=== PATIENT | male | born 1940 | race Caucasian/White ===

== ENCOUNTER 2017-08-26 11:45 | Inpatient (IN) | payer OTHER ==
[~2017-08-26] VITALS: Ht 177.8 cm; Wt 93.8 kg
[~2017-08-26 11:45] MED LIST: HYDROCHLOROTHIA25 M2 PO; HYDROCODON-ACE1 EAC7 PO; LEVEMIR SUBQ; LIPITOR40 MG PO; LISINOPRIL10 MG PO; METFORMIN HCL500 MG PO; NOVOLOG100 UNIT/1 SQ
[2017-08-26 11:50] VITALS: BP 139/66
[2017-08-26 12:47] LABS: ABSOLUTE BASOPHILS 0.1 thou/uL (0.0-0.2); ABSOLUTE EOSINOPHILS 0.2 thou/uL (0.0-0.7); ABSOLUTE LYMPHOCYTES 2.9 thou/uL (0.8-5.3); ABSOLUTE MONOCYTES 0.7 thou/uL (0.0-1.2); ABSOLUTE NEUTROPHILS 6.3 thou/uL (1.6-8.1); BASOPHILS 0.9 %; EOSINOPHILS 1.7 %; HEMATOCRIT 40.8 % (42.0-52.0); HEMOGLOBIN 13.4 gm/dL (14.0-18.0); LYMPHOCYTES 28.3 %; MCH 29.8 pg (26.0-34.0); MCHC 32.9 g/dL (28.0-37.0); MCV 90.8 fL (80.0-100.0); MPV 7.9 fl. (7.2-11.1); NUCLEATED RBCS 0 /100WBC; PLATELET COUNT* 270 thou/uL (150-400); POLYS 62.1 %; RDW-CV 14.7 % (10.5-14.5); WBC 10.2 thou/uL (4.0-11.0)
[2017-08-26] MEDS ORDERED: ASPIR 8181 MG PO (12:48)
[2017-08-26] MEDS ORDERED: ZYRTEC10 M4 PO (12:50)
[2017-08-26] MEDS ORDERED: TYLENOL325 MG PO (12:51)
[2017-08-26] MEDS ORDERED: ATROVENT HFA14 GM INH (12:51)
[2017-08-26 12:52] LABS: ANION GAP 9 mmol/L (7-16); BUN 24 mg/dL (7-18); CHLORIDE 103 mmol/L (98-107); CO2 26 mmol/L (21-32); CREATININE 1.3 mg/dL (0.6-1.3); GLUCOSE 135 mg/dL (70-99); SODIUM 138 mmol/L (136-145)
[2017-08-26 12:59] LABS: ALBUMIN 3.3 g/dL (3.4-5.0); ALKALINE PHOSPHATASE 93 U/L (46-116); SGOT 25 U/L (15-37); SGPT 28 U/L (30-65); TOTAL BILIRUBIN 0.6 mg/dL (<0.1-1.0); TOTAL PROTEIN 7.1 g/dL (6.4-8.2); TROPONIN-I LEVEL <0.06 ng/mL (<0.06)
--- NOTE | 2017-08-26 14:08 | NUR ---
SMALL LACERATION TO BACK OF HEAD. CLEANED WITH ANTIBACTERIAL SOAP AND WATER PHYSICIAN VIEWED LAC, DECIDED NO FURTHER INTERVENTION NEEDED FOR CLOSURE
[2017-08-26 14:30] VITALS: BP 160/70
--- NOTE | 2017-08-26 14:30 | NUR ---
RECEIVED REPORT. PT TRANSFERRED TO ROOM 210 VIA CART. VSS. CARDIAC MONTIORING IN PLACE. ADMISSION HISTORY AND ASSESSMENT COMPLETED CHARTED. PT ALERT AND ORIETNED. 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 PT ON RA. BILATERAL COMPRESSION STOCKINGS IN PLACE BILATERALLY. PT DENIES ANY COMPLAINTS OF PAIN OR DISCOMFORT AT THIS TIME. PT DENIES ANY DIZZINESS. FALL RISK AND MEDICARE FORMS SIGNED. PT ORIETNED TO ROOM AND CALL LIGHT. PT AND SON INFORMED OF PLAN OF CARE. CALL LIGHT IS WITHIN REACH. WILL CONTINUE TO MONTIOR FOR DURAITO OF SHIFT.
[2017-08-26 14:51] VITALS: BP 153/71
[2017-08-26] MEDS ORDERED: LEVEMIR SUBQ (15:30)
[2017-08-26 17:49] VITALS: BP 141/67
--- NOTE | 2017-08-26 18:42 | NUR ---
PT'S SON TO NURSE'S STATION SAYING PT FELT SOA. UPON ASSESSMENT VSS. O2 SAT 100% ON RA. PT DOES REPORT FEELING SOA. 2L PER NC APPLIED FOR COMFORT. PT DENIES ANY PAIN. PT SR ON THE MONTIOR. ENCOURAGED PT TO NOTIFY NURSE IF HE CONTINUES TO FEEL WORSE.
[2017-08-26 20:00] VITALS: BP 141/60
[2017-08-26 20:45] LABS: URINE BILIRUBIN NEGATIVE (Negative); URINE BLOOD NEGATIVE (Negative); URINE CLARITY CLEAR; URINE COLOR YELLOW; URINE GLUCOSE-RANDOM 3+ (Negative); URINE KETONES TRACE (Negative); URINE LEUKOCYTES-REFLEX NEGATIVE (Negative); URINE NITRITE-REFLEX NEGATIVE (Negative); URINE PROTEIN NEGATIVE (Negative); URINE UROBILINOGEN 0.2 E.U./dl (0.2-1.0)
[2017-08-27] VITALS: BP 172/78
[2017-08-27 00:10] VITALS: BP 154/67
[2017-08-27 04:00] VITALS: BP 131/62
--- NOTE | 2017-08-27 04:51 | NUR ---
PATIENT RESTED IN BED, NO ACUTE CHANGES. PATEINT DID NOT SHOW SIGNS OF DISTRESS. DOCTOR DOUGLAS NOTIFIED OF PATIENT MAG., LEVEL AND PATIENT PAIN, SEE ORDERS. FALL PRECAUTIONS IN PLACE, BED ALARM ON, CALL LIGHT WITHIN REACH, HOURLY ROUNDING OBSERVED.
--- NOTE | 2017-08-27 05:01 | NUR ---
PATIENT GAVE SELF HOME MEDICATION FOR BLOOD SUGAR.
--- NOTE | 2017-08-27 05:02 | NUR ---
DOCTOR COLE NOTIFIED OF PATIENT HOME INSULIN ROUTINE AND USEAGE.
--- NOTE | 2017-08-27 05:06 | NUR ---
DOCTOR YULI GAVE ORDER TO DRAW MAG, SEE ORDERS.
[2017-08-27 05:35] LABS: CHOLESTEROL 148 mg/dL (<200); HDL CHOLESTEROL 53 mg/dL (>40); LDL CHOLESTEROL 83 mg/dL (<100); TC:HDL 2.8 Ratio (Not establshd); TRIGLYCERIDE 62 mg/dL (<150); VLDL 12 mg/dL (<40)
[2017-08-27 05:38] LABS: SERUM ASSESSMENT CLEAR
--- NOTE | 2017-08-27 09:45 | EKG ---
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: DC : 1940 Requested By: Hattie Whatley Order Number: [id number] MD: Maury Belcher Measurements Intervals Dania Rate: 59 P: 66 MS: 166 QRS: 13 QRSD: 90 T: 9 QT: 406 QTc: 403 Interpretive Statements Sinus rhythm Multiple ventricular premature complexes Abnormal R-wave progression, early transition Compared to ECG 12/20/2015 18:13:22 No significant changes Electronically Signed On 08-27-2017 9:45:01 CDT by Maury Belcher [email or web address] <ELECTRONICALLY SIGNED> By: Maury Belcher MD, [facility] 08/27/17 0945 1152 1152 Maury Belcher MD, [facility] /EPI
[2017-08-27 11:28] VITALS: BP 156/60
--- NOTE | 2017-08-27 13:47 | NUR ---
Pt is A&O. Resides at home with his son and DIL. Normally active and independent. No DME. No hx of HH or SNF. Supportive family that is involved in POC, son and DIL, in room at bedside. Goal is to return home at dc. Following.
--- NOTE | 2017-08-27 16:28 | 2DMMODE ---
[place] [address] 2 D/M-MODE ECHOCARDIOGRAM Name: SANGALEKSEY SHEYLA Room: [address] ADM IN [facility]#: [id number] Admission: 08/26/17 Attend Phys: Mando Boggs Discharge: Date of : 44 Date of Service: 08/27/17 1628 Report #: [id number] THIS REPORT FOR: //name// APPROVED REPORT Study performed: 08/27/2017 11:35:19 EXAM: Comprehensive 2D, Doppler, and color-flow Echocardiogram Patient Location: In-Patient Room #: 210 Status: routine BSA: 2.19 HR: 60 bpm BP: 131/62 mmHg Other Information Study Quality: Fair Indications Arrhythmia 2D Dimensions IVSd: 11.06 (7-11mm) LVOT Diam: 20.79 (18-24mm) LVDd: 51.29 mm PWd: 11.28 (7-11mm) Ascending Ao: 29.21 (22-36mm) LVDs: 36.61 (25-40mm) Aortic Root: 31.15 mm Volumes Left Atrial Volume (Systole) LA ESV Index: 33.10 mL/m2 Aortic Valve AoV Peak Timi.: 1.25 m/s AO Peak Gr.: 6.22 mmHg LVOT Max P.80 mmHg AO Mean Gr.: 3.41 mmHg LVOT Mean P.25 mmHg LVOT Max V: 0.84 m/s AO V2 VTI: 30.04 cm LVOT Mean V: 0.50 m/s BRIDGER (VTI): 2.38 cm2 LVOT V1 VTI: 21.05 cm Mitral Valve E/A Ratio: 1.38 MV Decel. Time: 153.32 ms MV E Max Timi.: 0.92 m/s MV PHT: 44.46 [place] [address] 2 D/M-MODE ECHOCARDIOGRAM Name: ALEKSEY DOMÍNGUEZ Room: [address] IN [facility]#: [id number] Admission: 08/26/17 Attend Phys: Mando Boggs Discharge: Date of : 44 Date of Service: 08/27/17 1628 Report #: [id number] MVA (PHT): 4.95 cm2 TDI E/Lateral E': 10.22 E/Medial E': 13.14 Medial E' Timi.: 0.07 m/s Lateral E' Timi.: 0.09 m/s Pulmonary Valve PV Peak Timi.: 0.99 m/s PV Peak Gr.: 3.94 mmHg Tricuspid Valve TR Peak Gr.: 19.52 mmHg RVSP: 24.52 mmHg Left Ventricle The left ventricle is normal size. There is global hypokinesis of the left ventricle. Mild concentric left ventricular hypertrophy. Left ventricular systolic function is mildly decreased. LVEF is 35-40%. The left ventricular diastolic function is normal. Right Ventricle The right ventricle is normal size. The right ventricular systolic function is normal. Atria Left atrium is mildly dilated. The right atrium size is normal. Aortic Valve Aortic valve is mildly calcified. No aortic regurgitation is present. There is no aortic valvular stenosis. Mitral Valve The mitral valve is normal in structure. Mild mitral annular calcification. Mild mitral regurgitation. No evidence of mitral valve stenosis. Tricuspid Valve The tricuspid valve is normal in structure. Mild tricuspid regurgitation. The RVSP is 35__ mmHg. Pulmonic Valve The pulmonary valve is normal in structure. There is no pulmonic valvular regurgitation. Great Vessels The aortic root is normal in size. IVC [place] [address] 2 D/M-MODE ECHOCARDIOGRAM Name: ALEKSEY DOMÍNGUEZ Room: [address] IN [facility]#: [id number] Admission: 08/26/17 Attend Phys: Mando Boggs Discharge: Date of : 44 Date of Service: 08/27/17 1628 Report #: [id number] collapses with >50% inspiration Pericardium There is no pericardial effusion. <Conclusion> LVEF is 35-40%. Mild concentric left ventricular hypertrophy. Aortic valve is mildly calcified. Mild mitral regurgitation. Left atrium is mildly dilated. <ELECTRONICALLY SIGNED> By: Maury Belcher MD, [facility] 08/27/17 1628 27 27 Maury Belcher MD, FAC /INF
[2017-08-27 17:12] VITALS: BP 120/52
--- NOTE | 2017-08-27 17:12 | CARDNUC ---
[place] [address] CARDIAC NUCLEAR IMAGING REPORT Name: ALEKSEY DOMÍNGUEZ Room: [address] IN [facility]#: [id number] Admission: 08/26/17 Attend Phys: Mando Boggs Discharge: Date of : 44 Date of Service: 08/27/17 1712 Report #: [id number] THIS REPORT FOR: //name// APPROVED REPORT Study performed: 08/27/2017 08:47:00 Exam: Pharmacological Indication: Syncope Patient Location: In-Patient Room #: 210 Stress Tech: Karolyn Rollins Stress Nurse: Anat Izaguirre RN Ht: 5 ft 10 in Wt: 224 lbs BSA: 2.19 m2 BMI: 32.13 Medical History Medical History: Diabetes, HTN, Hyperlipidemia Medications: atorvastatin, lisinopril, metoprolol, asa Allergies: No known drug allergies Cardiac Risk Factors: Age,, Diabetes (insulin), HTN, Hyperlipidemia Exercise History: Sedentary Meds Held (24 hrs): metoprolol Stress Test Details Stress Test: Pharmacologic stress testing performed using 0.4 mg of regadenoson per 5 mL given IV over 10 seconds. Reason for pharmacologic stress test: physical limitation. HR Resting HR: 57 bpm Max Heart Rate (APMHR): 145 bpm Max HR Achieved: 85 bpm Target HR (85% APMHR): 123 bpm % of APMHR: 58 Recovery HR: 76 bpm BP Resting BP: 126/63 mmHg Max BP: 107/51 mmHg ECG Resting ECG: Sinus Rhythm Stress ECG: Sinus Rhythm ST Change: [place] [address] CARDIAC NUCLEAR IMAGING REPORT Name: ALEKSEY DOMÍNGUEZ Room: [address] IN [facility]#: [id number] Admission: 08/26/17 Attend Phys: Mando Boggs Discharge: Date of : 44 Date of Service: 08/27/17 1712 Report #: [id number] Arrhythmia: VPC's Recovery ECG: Sinus Rhythm Recovery ST Change: None Recovery Arrhythmia: VPC Clinical Reason for Termination: Completed protocol Stress Symptoms: None Exercise duration: 0 min sec Exercise capacity: 1.0 METs The patient tolerated Lexiscan infusion without significant symptoms. Stress ECG Conclusion The baseline 12-lead elect cardiogram showed sinus rhythm without significant ST or T wave abnormality. EKGs obtained during and post Lexiscan infusion show sinus rhythm with no significant ST or T wave changes when compared to baseline. There were frequent unifocal premature ventricular contractions noted. NM EXAM: Myocardial Perfusion REST/STRESS Imaging Protocol: Rest Tc-99m/Stress Tc-99m 1 day Resting Data Rest SPECT myocardial perfusion imaging was performed in supine position 30 minutes following the intravenous injection of 11.6 mCi of Tc-99m Sestamibi. Time of rest injection: 1405 The images were gated to evaluate regional wall motion and calculate left ventricular ejection fraction. Administration Route: IV Administration Site: Left Arm Pharmacologic Stress Pharmacologic stress test was performed by injecting Regadenoson 0.4 mg IV push followed by the intravenous injection of 34.3 mCi of Tc-99m Sestamibi. Time of stress injection: 1550 Administration Route: IV Administration Site: Left Arm Heart Rate at time of stress injection: 85 bpm. Gated Stress SPECT was performed 40 minutes after stress injection. The images were gated to evaluate regional wall motion and calculate left ventricular ejection fraction. Prone [place] [address] CARDIAC NUCLEAR IMAGING REPORT Name: ALEKSEY DOMÍNGUEZ SHEYLA Room: [address] IN [facility].#: [id number] Admission: 08/26/17 Attend Phys: Mando Boggs Discharge: Date of : 44 Date of Service: 08/27/17 1712 Report #: [id number] Study Data At rest, the left ventricular ejection fraction was 51%.. Post stress, the left ventricular ejection was 62%.. TID = 1.03. Perfusion There is a mild in intensity small in size reversible defect involving the apex. There is a moderate size mild inferior reversible defect involving the basal portion the inferior wall. No other significant fixed or reversible defects are identified. Wall Motion Global wall motion appears normal. Nuclear Conclusion ECG Findings: negative for ischemia Clinical Findings: negative for ischemia Nuclear Findings: positive for ischemia Exercise Capacity: not assessed Left Ventricular Function: normal Risk Study: moderate Perfusion images she does ischemia involving the standard wall as well as apex. Global LV systolic function is normal. This is a moderate risk study. <Conclusion> The baseline 12-lead elect cardiogram showed sinus rhythm without significant ST or T wave abnormality. EKGs obtained during and post Lexiscan infusion show sinus rhythm with no significant ST or T wave changes when compared to baseline. There were frequent unifocal premature ventricular contractions noted. <ELECTRONICALLY SIGNED> By: Alan Castillo MD, FACC 08/27/171711 11 11 Alan Castillo MD, FACC /INF
--- NOTE | 2017-08-27 17:14 | CON ---
[address] [address] CONSULTATION Name: SANGALEKSEY SHEYLA Room: [address] IN [facility].#: [id number] Admission: 08/26/17 Attend Phys: Keenan Correia Discharge: Date of : 44 Report #: [id number] THIS REPORT FOR: //name// CC: FAM unknown [facility] Mando Boggs INDICATION: Syncope and nonsustained ventricular tachycardia. HISTORY OF PRESENT ILLNESS: The patient is a very pleasant 77-year-old gentleman with no significant prior cardiac history. 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 He passed out without warning. He did strike his head and shoulders on the floor. He has a slight laceration on the scalp and some shoulder pain. He denies chest pain. He is not having shortness of breath. On arrival to the hospital, he was noted to have multiple PVCs as well as some nonsustained ventricular tachycardia. He is asymptomatic with these arrhythmias. He denies chest pain. He is not having any exertional symptomatology. CARDIAC RISK FACTORS: Include diabetes and hyperlipidemia. PAST MEDICAL HISTORY: 1. Insulin requiring type 2 diabetes. 2. Hyperlipidemia. 3. Previous rotator cuff repair. 4. 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 FAMILY HISTORY: Noncontributory. SOCIAL HISTORY: The patient is . He works for [employer]. He does not smoke. He does not drink alcohol. ALLERGIES: None documented. CURRENT MEDICATIONS: Tylenol p.r.n., aspirin 81 mg daily, atorvastatin 80 mg at bedtime, Zyrtec 10 mg daily, hydrochlorothiazide 12.5 mg daily, NovoLog 8 units subQ t.i.d., Levemir 24 units at bedtime, Atrovent 2 puffs q.i.d., lisinopril 10 mg daily, metformin 1000 mg b.i.d. REVIEW OF SYSTEMS: A 14-point review of systems positive for diabetes, skin cancer removed from the forehead, upper dentures, decreased hearing and he wears glasses without acute visual loss. Otherwise, 14-point review of systems was unremarkable. PHYSICAL EXAMINATION: VITAL SIGNS: Stable. Blood pressure 131/62, pulse 60 and regular. GENERAL: This is a pleasant elderly gentleman [place] [address] CONSULTATION Name: ALEKSEY DOMÍNGUEZ Room: [address]#: [id number] Admission: 08/26/17 Attend Phys: Keenan Correia Discharge: Date of : 44 Report #: [id number] affect appropriate. HEENT: Extraocular muscles intact. Mucous membranes are moist. The patient is wearing glasses. NECK: Shows no jugular venous distention. There are no carotid bruits. LUNGS: Reveal clear lung chase without wheezes or rales. CARDIAC: Reveals a regular rhythm. Normal S1 and S2. I do not appreciate gallop or murmur. ABDOMEN: Reveals normal bowel sounds. The abdomen is soft, nontender. EXTREMITIES: Show no edema. Peripheral pulses are 2+ and easily palpable. SKIN: Warm and dry. LABORATORY DATA: A 12-lead EKG shows sinus rhythm with unifocal premature ventricular contractions. No acute ST or T-wave abnormalities noted. Telemetry monitoring shows episodes of nonsustained ventricular tachycardia. Labs are reviewed. CBC on arrival, white blood cell count 10.2, hemoglobin 13.4, platelet count 270,000. Comprehensive metabolic profile on arrival, sodium 138, potassium 4.0, chloride 103, bicarbonate 26, BUN 24, creatinine 1.3, serum glucose 135. LFTs within normal limits. Calcium 9.0. Troponin less than 0.06. Chest x-ray on arrival, no acute process. UA remarkable for 3+ glucose, trace ketones. TSH is within normal limits. Magnesium was low at 1.6. Fasting lipid profile: Total cholesterol 148, triglycerides 62, HDL 53, LDL 83. IMPRESSION AND RECOMMENDATION: 1. Syncope, etiology not clear. I suspect this may be in part due to some dehydration and electrolyte abnormalities. The patient appears improved at this time. 2. Premature ventricular contractions and nonsustained ventricular tachycardia. We will proceed with echocardiogram and stress testing to evaluate and rule out any underlying occult ischemia. The patient's electrolytes have been corrected. At this point in time, his rhythm appears stable. 3. Diabetes per primary physician. 4. Hyperlipidemia, at goal on current statin agent. <ELECTRONICALLY SIGNED> By: Alan Castillo MD, FACC 08/27/17 1714 0854 [id number] center[facility] Castillo MD, FACC /nt
--- NOTE | 2017-08-27 18:57 | NUR ---
PATIENT RESTING IN BED. STRTESS TESTING COMPLETED TODAY WITH MODERATE RIS STUDY FINDINGS. CARDIAC CATH ORDERED FOR TOMORROW, NPO AFTER MIDNIGHT. VITAL SIGNS STABLE AND PATIENT IN NOAPPARENT DISTRSS AT THIS TIME. HOURLY ROUNDING COMPLETED FOR PATIENT SAFETY.
[2017-08-27 20:00] VITALS: BP 115/59
[2017-08-28] VITALS (17 sets, daily range): BP systolic 101–160; BP diastolic 52–80
[2017-08-28 03:07] LABS: GLYCOHEMOGLOBIN (HGB A1C) 7.9 % (4.8-5.6)
--- NOTE | 2017-08-28 03:53 | NUR ---
PATIENT RESTED IN BED, NO ACUTE CHANGES. PATIENT VITALS STABLE. PATIENT IS NPO FOR CATH. PATIENT DID NOT SHOW SIGNS OF DISTRESS. FALL PRECAUTIONS IN PLACE, BED ALARM ON, CALL LIGHT WITHIN REACH, HOURLY ROUNDING OBSERVED.
--- NOTE | 2017-08-28 10:49 | NUR ---
ASSUMED PT CARE AT 0700 PT IS ALERT AND ORIENTED X 4 PT DENEIS PAIN OR SOA PT IS A FALL RISK BED ALARM IS ON PT IS UP SBA, PT MAY AHVE CATH PROCEDURE PT IS UNSURE OF PROCEDURE, PT INSULIN PEN IS IN PATIENT BIN, VSS, GAVE REPORT TO ONCOMING NURSE
--- NOTE | 2017-08-28 11:03 | NUR ---
DPOA completed, copy on chart
--- NOTE | 2017-08-28 15:03 | NUR ---
PATIENT BACK FROM CARDIAC CATH. RAD STAT TO RIGHT WRIST. IV FLUIDS INFUSING. WILL CONTINUE TO MONITOR.
--- NOTE | 2017-08-28 17:47 | CARD ---
[address] [address] CARDIAC CATH REPORT Name: ALEKSEY DOMÍNGUEZ Room: [address] IN ..#: [id number] Admission: 08/26/17 Attend Phys: Keenan Correia Discharge: Date of : 44 Report #: [id number] THIS REPORT FOR: //name// APPROVED REPORT Study performed: 08/28/2017 13:29:34 Patient Details Patient Status: In-Patient Room #: 210 The patient is a 77 year-old male Event Personnel Megan Staples RN RN, Delma Anne RN, RN, Jacey Lorenzo, Brigitte Singleton Blick, David Cottage Parent Procedures Performed Art Access - R radial artery , Selective [facility] w/or w/o Coronaries [id number] [facility] Indication Arrhythmia, Syncope Risk Factors Hypertension, Diabetes Admission/Lab Medications/Medications given during procedure Heparin Unfract. Procedure Narrative The patient was brought electively to the Cardiac Catheterization Laboratory and was prepped and draped in a sterile manner. The right wrist was infiltrated with 2% Lidocaine subcutaneous anesthesia. A Slender Glidesheath sheath was inserted into the right radial artery. Coronary angiography was performed using coronary diagnostic catheters. The right coronary system was accessed and visualized with a Diagnostic JR 4 catheter. The left coronary system was accessed and visualized with a Diagnostic JL 4 catheter. Left ventricular/Aortic Valve gradient assessed via catheter pullback. Closure device was deployed with a 6 Fr vascband. The patient tolerated the procedure well and there were no complications associated with the procedure. There was no hematoma. Intra[place] [address] CARDIAC CATH REPORT Name: CHUCKSHERWINALEKSEY SHEYLA Room: [address] IN [facility]#: [id number] Admission: 08/26/17 Attend Phys: Keenan Correia Discharge: Date of : 44 Report #: [id number] Sedation start time: 14:04 Case end Time: 14:37 Versed 2 mg Fluoro Time: 7.0 minutes Dose: DAP 83746 cGycm2 914.99 mGy Contrast Type and Amount: Omnipaque 100 ml Coronary Angiography The patient's coronary anatomy is right dominant. Diagnostic Cath Left Main 0% stenosis LAD 50% mid and 80% apical stenosis Diagonal 1 small vessel that had a 70% mid stenosis Circumflex 50% mid stenosis Right Coronary 60% mid stenosis R PDA 60% mid stenosis Left Ventriculography Left Ventriculography was not performed. Hemodynamics The aortic pressure is 114/59 mmHg with a mean of mmHg. The left ventricular pressure is 112/-1 mmHg with a mean of mmHg. The left ventricular end diastolic pressure is 4 mmHg. Pullback from the left ventricle to the aorta revealed no gradient across the aortic valve. Pullback from the left ventricle to the aorta revealed a mm gradient across the aortic valve. Conclusion 1. diffuse mild cad Recommendations Aggressive Medical Therapy <ELECTRONICALLY SIGNED> By: Maury Belcher MD, FACC 08/28/171746 46 46Dadeshaun Belcher MD, FAC /INF
--- NOTE | 2017-08-28 18:46 | NUR ---
PATIENT RESTING IN BED THROUGH OUT THIS SHIFT. PATIENT RESTING IN BED AND REPORTING NO PAIN, NAUSEA OR SHORTNESS OF BREATH. DRESSING PLACED ON RIGHT WRIST. PATIENT VERBALIZING UNDERSTANDING OF POST CATH INSTRUCTIONS. WILL CONTINUE THIS SHIFT.
[2017-08-29] VITALS: BP 126/64
[2017-08-29 04:00] VITALS: BP 153/80
--- NOTE | 2017-08-29 06:57 | NUR ---
Pt reports he rested well overnight. VSS, and RW stick site stable. Pt hopeful of being discharged this morning. Will continue to monitor.
[2017-08-29 08:00] VITALS: BP 131/67
[2017-08-29 09:01] VITALS: BP 153/80
[2017-08-29 11:56] VITALS: BP 140/60
[2017-08-29] MEDS ORDERED: TOPROL XL25 MG PO (12:04)
[2017-08-29] MEDS ORDERED: PLAVIX 75 MG TA75 M1 PO (12:05)
[2017-08-29] MEDS ORDERED: METOPROLOL TART25 MG PO (14:02)
[2017-08-29 14:03] VITALS: BP 140/60
--- NOTE | 2017-08-29 15:30 | NUR ---
order recieved to discharge patient home to self care. med rec, medication education, stroke education, and need for follow up care and cardiology appointments coverd and stated as understood by patient. iv and telemtry pack removed. patient educated regardiong weight and mobility limitation r/t right radial artery access. hourly rounding completd for patient safety and patietn had progbressed towards goals. discharge time of 14:30.
== END 2017-08-29 14:39 | disposition home or self-care (01) | DRG 287 ==
LOC: M.ERS 11:45 → M.TBA-ER 13:27 → M.2W 13:27
PROVIDERS: Internal Medicine; Personal Emergency Response Attendant; ADMIT Internal Medicine
PROC: 4A023N7 Measurement of Cardiac Sampling and Pressure, Left Heart, Percutaneous Approach (ICD-10-PCS; principal; 2017-08-28)
PROC: B2111ZZ Fluoroscopy of Multiple Coronary Arteries using Low Osmolar Contrast (ICD-10-PCS; principal; 2017-08-28)
DX: I47.1 Supraventricular tachycardia (principal); I50.22 Chronic systolic (congestive) heart failure; I49.8 Other specified cardiac arrhythmias; I25.10 Atherosclerotic heart disease of native coronary artery without angina pectoris; I49.3 Ventricular premature depolarization; E11.9 Type 2 diabetes mellitus without complications; E78.5 Hyperlipidemia, unspecified; E86.0 Dehydration; Z79.4 Long term (current) use of insulin; Z82.49 Family history of ischemic heart disease and other diseases of the circulatory system; Z87.891 Personal history of nicotine dependence

== ENCOUNTER 2017-12-03 09:39 | Inpatient (IN) | payer OTHER ==
[~2017-12-03] VITALS: Ht 177.8 cm; Wt 101.6 kg
[~2017-12-03 09:39] MED LIST changes: +ASPIR 8181 MG PO; +ATROVENT HFA14 GM INH; +METOPROLOL TART25 MG PO; +PLAVIX 75 MG TA75 M1 PO; +TOPROL XL25 MG PO; +TYLENOL325 MG PO; +ZYRTEC10 M4 PO
[2017-12-03 09:41] VITALS: BP 146/63
[2017-12-03] MEDS ORDERED: COREG6.25 MG PO (09:43)
[2017-12-03] MEDS ORDERED: ECOTRIN325 MG PO (09:44)
[2017-12-03] MEDS ORDERED: RANEXA500 MG PO (09:44)
[2017-12-03] MEDS ORDERED: FISH OIL 1,001000 M2 PO (09:46)
[2017-12-03] MEDS ORDERED: CENTRUM SILVER1 EAC4 PO (09:47)
[2017-12-03] MEDS ORDERED: NITROGLYCERIN0.4 MG SUBLING (09:49)
[2017-12-03] MEDS ORDERED: PACERONE 200 M200 M1 PO (09:49)
[2017-12-03 10:09] LABS: ABSOLUTE BASOPHILS 0.1 thou/uL (0.0-0.2); ABSOLUTE EOSINOPHILS 0.2 thou/uL (0.0-0.7); ABSOLUTE LYMPHOCYTES 1.2 thou/uL (0.8-5.3); ABSOLUTE MONOCYTES 0.6 thou/uL (0.0-1.2); ABSOLUTE NEUTROPHILS 7.4 thou/uL (1.6-8.1); BASOPHILS 1.5 %; EOSINOPHILS 2.2 %; HEMATOCRIT 38.8 % (42.0-52.0); HEMOGLOBIN 12.7 gm/dL (14.0-18.0); LYMPHOCYTES 13.1 %; MCH 30.1 pg (26.0-34.0); MCHC 32.8 g/dL (28.0-37.0); MCV 91.7 fL (80.0-100.0); MPV 8.2 fl. (7.2-11.1); NUCLEATED RBCS 0 /100WBC; PLATELET COUNT* 273 thou/uL (150-400); POLYS 77.2 %; RBC 4.22 mil/uL (4.50-6.00); RDW-CV 15.4 % (10.5-14.5); WBC 9.5 thou/uL (4.0-11.0)
[2017-12-03 10:15] LABS: ANION GAP 3 mmol/L (7-16); BUN 28 mg/dL (7-18); CALCIUM 8.1 mg/dL (8.5-10.1); CHLORIDE 102 mmol/L (98-107); CO2 31 mmol/L (21-32); CREATININE 1.2 mg/dL (0.6-1.3); GLUCOSE 189 mg/dL (70-99); POTASSIUM 4.8 mmol/L (3.5-5.1); SODIUM 136 mmol/L (136-145)
[2017-12-03 10:20] LABS: PROTIME 10.2 Seconds (9.20-11.50)
[2017-12-03 10:25] LABS: ALBUMIN 3.3 g/dL (3.4-5.0); ALKALINE PHOSPHATASE 86 U/L (46-116); LIPASE 106 U/L (73-393); NT-PRO BRAIN NAT PEPTIDE 434 pg/mL (<300); SGOT 22 U/L (15-37); SGPT 28 U/L (30-65); TOTAL BILIRUBIN 0.6 mg/dL (<0.1-1.0); TOTAL PROTEIN 7.4 g/dL (6.4-8.2); TROPONIN-I LEVEL <0.06 ng/mL (<0.06)
[2017-12-03 14:20] VITALS: BP 129/60
[2017-12-03 14:29] VITALS: BP 181/52
--- NOTE | 2017-12-03 15:33 | EKG ---
[place] [address] ELECTROCARDIOGRAM REPORT Name: ALEKSEY DOMÍNGUEZ Room: [address] ADM IN ..#: [id number] Admission: 12/03/17 Attend Phys: Keenan Correia Discharge: Date of : 44 Report #: [id number] THIS REPORT FOR: //name// [facility] ED Test Date: 2017-12-03 Test Time: 09:42:57 Pat Name: ALEKSEY DOMÍNGUEZ Department: Room: [facility] Gender: M Director Of Tax Services: Nadia NARVAEZ : 1940 Requested By: Hattie Whatley Order Number: [id number] MD: Alan Castillo Measurements Intervals [place] Rate: 49 P: 42 WA: 197 QRS: 8 QRSD: 91 T: 35 QT: 453 QTc: 409 Interpretive Statements Sinus bradycardia Low voltage, precordial leads Baseline wander in lead(s) V1,V3 Compared to ECG 08/26/2017 11:52:07 Low QRS voltage now present Sinus rhythm no longer present Ventricular premature complex(es) no longer present Electronically Signed On 12-03-2017 15:32:53 CDT by Alan Castillo [email or web address] <ELECTRONICALLY SIGNED> By: Alan Castillo MD, FACC 12/03/17 1532 0942 0942 Alan Castillo MD, FACC /EPI
--- NOTE | 2017-12-03 16:46 | 2DMMODE ---
[place] [address] 2 D/M-MODE ECHOCARDIOGRAM Name: ALEKSEY DOMÍNGUEZ Room: [address] ADM IN [facility]#: [id number] Admission: 12/03/17 Attend Phys: Mando Boggs Discharge: Date of : 44 Date of Service: 12/03/17 1645 Report #: [id number] THIS REPORT FOR: //name// APPROVED REPORT Study performed: 12/03/2017 16:12:51 EXAM: Limited 2D Echocardiogram Patient Location: In-Patient Room #: 210 Status: routine BSA: 2.19 HR: 50 bpm BP: 181/52 mmHg Rhythm: NSR Other Information Study Quality: Good Indications Chest Pressure 2D Dimensions LVEF(%): 55.23 (>50%) IVSd: 10.01 (7-11mm) LVDd: 44.58 mm PWd: 9.81 (7-11mm) LVDs: 31.85 (25-40mm) Aortic Root: 33.03 mm Alberto's LVEF: 55.23 % Volumes Left Atrial Volume (Systole) LA ESV Index: 47.20 mL/m2 Left Ventricle The left ventricle is normal size. There is normal left ventricular wall thickness. The left ventricular systolic function is normal. LVEF is 55-60%. Right Ventricle The right ventricle is normal size. The right ventricular systolic function is normal. Atria Left atrium is moderately dilated. The right atrium size is [facility] [address] [place] [address] 2 D/M-MODE ECHOCARDIOGRAM Name: SANGALEKSEY SHEYLA Room: [address] IN .R.#: [id number] Admission: 12/03/17 Attend Phys: Mando Boggs Discharge: Date of : 44 Date of Service: 12/03/171644 Report #: [id number] normal. Aortic Valve Mild aortic valve sclerosis. Mitral Valve The mitral valve is normal in structure. Tricuspid Valve The tricuspid valve is normal in structure. Pulmonic Valve The pulmonary valve is normal in structure. Great Vessels The aortic root is normal in size. IVC is not visualized. Pericardium There is no pericardial effusion. <Conclusion> The left ventricle is normal size. There is normal left ventricular wall thickness. The left ventricular systolic function is normal. LVEF is 55-60%. Left atrium is moderately dilated. Mild aortic valve sclerosis. <ELECTRONICALLY SIGNED> By: Alan Castillo MD, FACC 12/03/171644 44 1645 Alan Castillo MD, FACC /INF
--- NOTE | 2017-12-03 16:52 | EKG ---
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: [facility] : 1940 Requested By: Mando Boggs Order Number: [id number] Мария MD: Alan Castillo Measurements Intervals [place] Rate: 50 P: 48 [place]: 204 QRS: 10 QRSD: 93 T: 22 QT: 472 QTc: 431 Interpretive Statements Sinus rhythm Low voltage, precordial leads Compared to ECG 12/03/2017 09:42:57 Sinus bradycardia no longer present Electronically Signed On 12-03-2017 16:52:35 CDT by Alan Castillo [email or web address] <ELECTRONICALLY SIGNED> By: Alan Castillo MD, [facility] 12/03/171651 41 41 Alan Castillo MD, [facility] /EPI
--- NOTE | 2017-12-03 18:23 | NUR ---
PT ADMITTED TO UNIT AROUND 1400 PT IS ALERT AND ORIENTED X 4 PT DENIES PAIN OR CHEST PRESSURE PT DENIES SOA, PT IS UP WITH SBA PT IS A FALL RISK, PTI S SB ON THE MONITOR CARDIOLOGY SAW PT CHANGED PT MEDICATION AND STATED THE REASON PT IS ADMITTED IS DUE TO MEDICATION LOWERING HEART RATE PT WAS ON AMIODOARONE WHICH PT STARTED SEVERAL DAYS AGO, PT CALLS OUT APPROPRIATELY USES CALL LIGHT IN BATHROOM DOES NOT WAIT FOR ASSISTANCE EVEN AFTER EDUCATED TO STATES HE WON'T FALL BE ALMOST FELL IN BATHROOM WILL CONTINUE TO MONITOR
[2017-12-03 20:00] VITALS: BP 110/53
[2017-12-04] VITALS (7 sets, daily range): BP systolic 100–120; BP diastolic 45–73
--- NOTE | 2017-12-04 06:59 | NUR ---
PATIENT DID NOT SHOW SIGNS OF DISTRESS. PATIENT DID NOT COMPAIN OF CHEST PAIN. NO ACUTE CHANGES TO PATIENT. FALL PRECAUTIONS IN PLACE, BED ALARM ON, CALL LIGHT WITH IN REACH, HOURLY ROUNDING OBSERVED.
--- NOTE | 2017-12-04 12:27 | NUR ---
ASSUMED CARE OF PT AROUND 0730 THIS AM. REFER TO ASSESSMENT. PT STILL SB WITH RATE IN THE 40'S. B/P SOFT THIS AM WITH DIASTOLIC NOTED TO BE IN THE 40'S. LISINOPRIL AND IMDUR HELD THIS AM. NO OTHER CONCERNS AT THIS TIME. CLWR. WCTM.
--- NOTE | 2017-12-04 17:01 | NUR ---
PT PROGRESSING TOWARDS GOALS THIS SHIFT. NO C/O CHEST PAIN. TELE CONTINUES ORTEGA WITH RATE IN THE 50'S. B/P STABLE THIS AFTERNOON. ANTICIPATE DC HOME TOMORROW. NO OTHER CONCERNS AT THIS TIME. CLWR. WCTM.
[2017-12-05] VITALS: BP 99/63
[2017-12-05 04:00] VITALS: BP 131/55
--- NOTE | 2017-12-05 05:11 | NUR ---
Assumed care of patient at 1930. Full assessmented performed and documented; hourly rounding completed for patient safety. Patient progressing toward goals. Patient A&O x4; up ad shila in his room. SB noted on telemetry. All VSS. Right AC IVL intact and flushed. No c/o pain during shift. Call light within reach. Will continue to monitor.
[2017-12-05 08:00] VITALS: BP 141/67
[2017-12-05 10:57] VITALS: BP 103/45
[2017-12-05] MEDS ORDERED: IMDUR 30 MG TAB30 M1 PO (11:13)
== END 2017-12-05 11:34 | disposition home or self-care (01) | DRG 303 ==
LOC: M.ERS 09:39 → M.TBA-ER 11:07 → M.2W 11:07
PROVIDERS: Personal Emergency Response Attendant; ADMIT Internal Medicine
DX: I25.110 Atherosclerotic heart disease of native coronary artery with unstable angina pectoris (principal); R00.1 Bradycardia, unspecified; D64.9 Anemia, unspecified; E11.65 Type 2 diabetes mellitus with hyperglycemia; E78.5 Hyperlipidemia, unspecified; I10 Essential (primary) hypertension; I42.9 Cardiomyopathy, unspecified; Z79.82 Long term (current) use of aspirin; Z82.5 Family history of asthma and other chronic lower respiratory diseases; Z83.3 Family history of diabetes mellitus; Z82.49 Family history of ischemic heart disease and other diseases of the circulatory system; Z87.891 Personal history of nicotine dependence; Z79.899 Other long term (current) drug therapy

== ENCOUNTER 2017-12-16 10:56 | Observation (INO) | payer OTHER ==
[~2017-12-16] VITALS: Ht 175.3 cm; Wt 110.4 kg
[~2017-12-16 10:56] MED LIST changes: +CENTRUM SILVER1 EAC4 PO; +COREG6.25 MG PO; +ECOTRIN325 MG PO; +FISH OIL 1,001000 M2 PO; +IMDUR 30 MG TAB30 M1 PO; +NITROGLYCERIN0.4 MG SUBLING; +PACERONE 200 M200 M1 PO; +RANEXA500 MG PO
[2017-12-16 10:57] VITALS: BP 160/73
[2017-12-16 11:04] LABS: ABSOLUTE BASOPHILS 0.1 thou/uL (0.0-0.2); ABSOLUTE EOSINOPHILS 0.2 thou/uL (0.0-0.7); ABSOLUTE LYMPHOCYTES 1.5 thou/uL (0.8-5.3); ABSOLUTE MONOCYTES 0.7 thou/uL (0.0-1.2); ABSOLUTE NEUTROPHILS 8.8 thou/uL (1.6-8.1); BASOPHILS 0.6 %; EOSINOPHILS 1.8 %; HEMATOCRIT 38.5 % (42.0-52.0); HEMOGLOBIN 12.6 gm/dL (14.0-18.0); LYMPHOCYTES 13.5 %; MCH 30.2 pg (26.0-34.0); MCHC 32.7 g/dL (28.0-37.0); MCV 92.2 fL (80.0-100.0); MONOCYTES 6.3 %; MPV 7.9 fl. (7.2-11.1); NUCLEATED RBCS 0 /100WBC; PLATELET COUNT* 301 thou/uL (150-400); POLYS 77.8 %; RBC 4.17 mil/uL (4.50-6.00); RDW-CV 15.4 % (10.5-14.5); WBC 11.2 thou/uL (4.0-11.0)
[2017-12-16 11:13] LABS: ANION GAP 4 mmol/L (7-16); APTT 25.6 Seconds (25.0-31.3); BUN 23 mg/dL (7-18); CALCIUM 8.1 mg/dL (8.5-10.1); CHLORIDE 102 mmol/L (98-107); CO2 31 mmol/L (21-32); CREATININE 1.2 mg/dL (0.6-1.3); GLUCOSE 161 mg/dL (70-99); POTASSIUM 5.1 mmol/L (3.5-5.1); PROTIME 10.3 Seconds (9.20-11.50); SODIUM 137 mmol/L (136-145)
[2017-12-16 11:23] LABS: ALBUMIN 3.2 g/dL (3.4-5.0); ALKALINE PHOSPHATASE 88 U/L (46-116); NT-PRO BRAIN NAT PEPTIDE 248 pg/mL (<300); SGOT 22 U/L (15-37); SGPT 30 U/L (30-65); TOTAL BILIRUBIN 0.5 mg/dL (<0.1-1.0); TOTAL PROTEIN 7.3 g/dL (6.4-8.2); TROPONIN-I LEVEL <0.06 ng/mL (<0.06)
[2017-12-16 15:37] VITALS: BP 140/61
[2017-12-16 16:00] VITALS: BP 134/57
[2017-12-16 17:13] LABS: URINE BLOOD NEGATIVE (Negative); URINE CLARITY CLEAR; URINE COLOR DARK YELLOW; URINE GLUCOSE-RANDOM TRACE (Negative); URINE KETONES TRACE (Negative); URINE LEUKOCYTES-REFLEX NEGATIVE (Negative); URINE PROTEIN 1+ (Negative); URINE SPECIFIC GRAVITY >= 1.030 (1.005-1.030)
[2017-12-16 17:14] LABS: ICTOTEST (BILI CONFIRMATORY) Negative (Negative); URINE BILIRUBIN 1+ (Negative); URINE NITRITE-REFLEX POSITIVE (Negative)
[2017-12-16 17:43] LABS: BACTERIA-REFLEX 1-9 Few /HPF (None Seen); HYALINE CASTS >10 Many /LPF (None Seen)
[2017-12-16 17:44] LABS: CRYSTALS None Seen /LPF (None Seen); MUCUS None Seen strn/LPF (None Seen); SQUAMOUS NONE SEEN /LPF (0-3); URINE RBC None Seen /HPF (0-2); URINE WBC-REFLEX None Seen /HPF (0-5)
--- NOTE | 2017-12-16 18:01 | EKG ---
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 Board: Prabha SOSA : 1940 Requested By: Augustine Becerra Order Number: [id number] MD: Maury Belcher Measurements Intervals [place] Rate: 62 P: 52 [place]: 187 QRS: 3 QRSD: 101 T: 36 QT: 423 QTc: 430 Interpretive Statements Sinus rhythm Low voltage, precordial leads Compared to ECG 12/03/2017 16:42:15 rate increased Electronically Signed On 12-16-2017 18:01:28 CDT by Maury Belcher [email or web address] <ELECTRONICALLY SIGNED> By: Maury Belcher MD, [facility] 12/16/17 1801 1059 1059 Maury Belcher MD, [facility] /EPI
[2017-12-16 20:00] VITALS: BP 144/96
--- NOTE | 2017-12-16 20:13 | NUR ---
PT. ARRIVED ON UNIT AT APPROX. 1600. A/OX4, VSS, MONITOR PLACED TRACING SB IIN THE 50'S. PT. DENIES CURRENT PAIN/SOB. REQUEST TO REMOVE 02. FULL ASSESSMENT COMPLETED WITH NO CHANGES NOTED FROM ADMISSION. UA SENT PER ORDERS. HOME MED REC REVIEWED WITH PT/SON. PT. ASSISTED TO BATHROOM, UNSTEADY ON FEET AT TIMES. FALL PRECAUTIONS PUT IN PLACE, PT. STATES UNDERSTANDING. PT. ORIENTED TO ROOM/PROCEDURES. WILL CONTINUE WITH PLAN OF CARE.
[2017-12-17] VITALS: BP 122/50
--- NOTE | 2017-12-17 02:57 | NUR ---
ASSUMED CARE OF PATIENT AT 1900. VSS, AFEBRILE. REMAINS SINUS ORTEGA IN THE 50'S. BP WITHIN NORMAL LIMITS. FAMILY AT BEDSIDE, CONCERNED ABOUT MOMENTS OF CONFUSION PATIENT SEEMS TO BE HAVING. PATIENT IS A&0 X4, DOES NOT SEEM FORGETFUL. ANSWERS ALL QUESTIONS APPROPRIATELY. UP TO THE BATHROOM WITH SBA. NO OTHER CONCERNS AT THIS TIME. WILL CONTINUE TO MONITOR.
[2017-12-17 04:00] VITALS: BP 117/54
--- NOTE | 2017-12-17 08:00 | NUR ---
ASSUMED PT. CARE AND RECEIVED REPORT AT 0730. PT A/OX4, VSS, MONITOR ON TRACIGN SB 59. PT. DENIES CURRENT PAIN. STATES SOB IS MILDLY PRESENT AT TIMES. ON RA @ 95%. FULL ASSESSMENT COMPLETED, REFER TO CHARTING. PT. SON AT BEDSIDE. FALL PRECAUTIONS IN PLACE, WILL CONTINUE WITH PLAN OF CARE.
[2017-12-17 08:15] VITALS: BP 116/57
[2017-12-17 10:13] VITALS: BP 116/57
[2017-12-17 12:08] VITALS: BP 117/52
[2017-12-17] MEDS ORDERED: CEFDINIR300 MG PO (14:14)
--- NOTE | 2017-12-17 14:34 | NUR ---
DC ORDERS RECEIVED. PT. COMPLETED EXERCISE SAT. WITH RT, DID NOT QUALIFY FOR O2 STAY AT 89% OR >. PT. GIVEN DC INSTRUCTIONS, SCRIPTS, AND CARENOTES. VERBALIZED UNDERSTANDING. PT. LEFT VIA WHEELCHAIR TO RETURN HOME IN PERSONAL VEHICLE, ALL BELONGINGS ACCOUNTED FOR.
--- NOTE | 2017-12-20 08:12 | CON ---
[address] [address] CONSULTATION Name: CHUCKSHERWINALEKSEY SHEYLA Room: [address] Shyla Limon#: [id number] Admission: 12/16/17 Attend Phys: Frank Abraham Discharge: 12/17/17 Date of : 44 Report #: [id number] THIS REPORT FOR: //name// CC: FAM unknown Joselyn Cruz MA CLINIC DATE OF SERVICE: 12/16/2017 HISTORY OF PRESENT ILLNESS: The patient is a 77-year-old single white male who I was asked to see in the Emergency Room today after he complained of chest pain. The patient has a long history of diabetes. He primarily cared for at the [facility]. He initially presented in July when he felt lightheaded and fell to the ground. He suffered a laceration. He was noted to have PVCs and a run of nonsustained ventricular tachycardia. He was seen in consultation by my partner, Dr. Castillo. I actually performed a cardiac catheterization in July from the right radial artery. Results showed mild diffuse coronary artery disease with a 50% stenosis of mid LAD, 80% narrowing of the apical LAD, small diagonal branch had a 70% stenosis. The right coronary has 60% stenosis. Ventriculogram was not performed. He was felt to have diffuse coronary artery disease that should be treated medically. He was then admitted in November, complaining of chest pressure. [facility], was unclear why. However, he developed bradycardia and he was then taken off the amiodarone. The patient was just discharged 2 weeks ago. The patient is not very active because of his age. This morning, he was at home, felt a pressure in his chest, took nitroglycerin. He felt short of breath. He was brought to the emergency room and admitted. He was noted to be bradycardic. He does note occasional lightheadedness. He has had no bleeding. PAST MEDICAL HISTORY: Significant for shoulder surgery, eye surgery, diabetes. CURRENT MEDICATIONS: Consist of Ranexa, aspirin, metformin, lisinopril, insulin, Imdur, hydrochlorothiazide, Lipitor. ALLERGIES: He has no known drug allergies. FAMILY HISTORY: Positive for heart disease. SOCIAL HISTORY: He is , lives with his son. Quit smoking years ago, no alcohol abuse. REVIEW OF SYSTEMS: He has had no stroke, asthma, peptic ulcer disease, liver disease, kidney disease. He had a skin cancer removed in the past. He wears glasses. PHYSICAL EXAMINATION: [place] [address] CONSULTATION Name: ALEKSEY DOMÍNGUEZ Room: [address] Shyla Limon#: [id number] Admission: 12/16/17 Attend Phys: Frank Abraham Discharge: 12/17/17 Date of : 44 Report #: [id number] GENERAL: Revealed an elderly male, lying in bed. He appeared in no distress. VITAL SIGNS: He had a blood pressure of 140/60, pulse 54. He was afebrile. HEENT: He is anicteric. Conjunctivae pink. Mucous membranes are moist. NECK: Veins nondistended. CHEST: Clear to auscultation. CARDIOVASCULAR: Regular bradycardia. ABDOMEN: Soft, nontender. EXTREMITIES: Had no edema. Posterior dorsalis pedis pulse 1+ bilaterally. SKIN: Cool and dry. NEUROLOGIC: Nonfocal. LABORATORY DATA: His ECG on admission shows a sinus rhythm, but no significant ST or T-wave change. Additional workup: The patient just had an echocardiogram done here at [facility] 2 weeks ago that showed normal ejection fraction, left atrial enlargement, aortic sclerosis. His nuclear stress test in July showed a mild reversible apical defect as well as a reversible inferior defect. His lab work; sodium 137, creatinine 1.2. Liver function studies were normal. Troponin 0.06. His TSH, which was done in July was 1.9. White blood cell count 11.2, hemoglobin 12.6. IMPRESSION AND RECOMMENDATIONS: 1. Coronary artery disease. Noted to be diffuse. Not readily amenable to stenting. Recommend medical therapy. 2. Possible history of atrial fibrillation. The patient is on amiodarone previously, but developed bradycardia. The patient does not appear to be a very good candidate for anticoagulation because of his poor activity status. 3. Hypertension. The patient on ASIA diuretic. 4. Hyperlipidemia. The patient is on a statin drug. 5. Diabetes. 6. Sinus bradycardia. If symptomatic, he would require a pacemaker. <ELECTRONICALLY SIGNED> By: Maury Belcher MD, [facility] 12/20/17 0812 1539 1915Dadeshaun Belcher MD, FACC /nt
== END 2017-12-17 14:37 | disposition home or self-care (01) ==
LOC: M.ERS 10:56 → M.2W 12:22 → M.TBA-ER 12:22 → M.2W 12:22
PROVIDERS: Emergency Medicine; ADMIT Internal Medicine
DX: R00.1 Bradycardia, unspecified (principal); R55 Syncope and collapse; I25.10 Atherosclerotic heart disease of native coronary artery without angina pectoris; E78.5 Hyperlipidemia, unspecified; I10 Essential (primary) hypertension; E11.9 Type 2 diabetes mellitus without complications; N39.0 Urinary tract infection, site not specified; Z82.49 Family history of ischemic heart disease and other diseases of the circulatory system; Z85.828 Personal history of other malignant neoplasm of skin; Z87.891 Personal history of nicotine dependence

== ENCOUNTER 2018-01-19 19:24 | Inpatient (IN) | payer OTHER ==
[~2018-01-19] VITALS: Ht 175.3 cm; Wt 100.2 kg
[~2018-01-19 19:24] MED LIST changes: +CEFDINIR300 MG PO
[2018-01-19 19:41] VITALS: BP 172/75
[2018-01-19 19:58] LABS: HEMATOCRIT 38.1 % (42.0-52.0); HEMOGLOBIN 12.4 gm/dL (14.0-18.0); MCH 30.6 pg (26.0-34.0); MCHC 32.6 g/dL (28.0-37.0); MCV 93.7 fL (80.0-100.0); MPV 7.9 fl. (7.2-11.1); NUCLEATED RBCS 0 /100WBC; PLATELET COUNT* 234 thou/uL (150-400); RBC 4.06 mil/uL (4.50-6.00); RDW-CV 15.7 % (10.5-14.5); WBC 12.6 thou/uL (4.0-11.0)
[2018-01-19 20:13] LABS: ANION GAP 5 mmol/L (7-16); BUN 30 mg/dL (7-18); CALCIUM 8.5 mg/dL (8.5-10.1); CHLORIDE 101 mmol/L (98-107); CO2 31 mmol/L (21-32); CREATININE 1.4 mg/dL (0.6-1.3); GLUCOSE 162 mg/dL (70-99); POTASSIUM 4.8 mmol/L (3.5-5.1); SODIUM 137 mmol/L (136-145)
[2018-01-19 20:16] LABS: APTT 27.8 Seconds (25.0-31.3)
[2018-01-19 20:24] LABS: ALBUMIN 3.4 g/dL (3.4-5.0); ALKALINE PHOSPHATASE 80 U/L (46-116); NT-PRO BRAIN NAT PEPTIDE 412 pg/mL (<300); SGOT 24 U/L (15-37); SGPT 28 U/L (30-65); TOTAL BILIRUBIN 0.5 mg/dL (<0.1-1.0); TOTAL PROTEIN 7.6 g/dL (6.4-8.2); TROPONIN-I LEVEL <0.06 ng/mL (<0.06)
[2018-01-19 20:34] LABS: ABSOLUTE EOSINOPHILS 0.3 thou/uL (0.0-0.7); ABSOLUTE MONOCYTES 0.1 thou/uL (0.0-1.2); ABSOLUTE NEUTROPHILS 11.2 thou/uL (1.6-8.1)
[2018-01-19 20:35] LABS: PLATELET ESTIMATE ADEQUATE
[2018-01-19 21:48] VITALS: BP 137/57
[2018-01-19 22:00] VITALS: BP 136/68
[2018-01-20 00:23] VITALS: BP 144/64
[2018-01-20 04:00] VITALS: BP 126/61
--- NOTE | 2018-01-20 04:27 | NUR ---
PT ARRIVED FROM ER AT AROUND 2200. ASSESSMENT COMPLETED CHARTED. FAMILY CAME UP WITH PT TO ROOM AND HELP ANSWER QUESTIONS. ABLE TO MAKE NEEDS KNOWN. BEDREST AT THE MOMENT. ATAXIA GETTING BETTER COMPARED TO ER REPORT AND FAMILY REPORT. PT DOESNT HAVE GLASSES OR HEARING AIDS AT THE MOMENT SO WAITING TO SIGN PAPERWORK TILL FAMILY COMES BACK TODAY. NO C/O PAIN OR DISCOMFORT. WILL CONTINUE TO MONITOR.
[2018-01-20 05:04] LABS: HEMATOCRIT 33.4 % (42.0-52.0); HEMOGLOBIN 11.2 gm/dL (14.0-18.0); MCH 31.3 pg (26.0-34.0); MCHC 33.6 g/dL (28.0-37.0); MCV 93.2 fL (80.0-100.0); MPV 8.2 fl. (7.2-11.1); RBC 3.59 mil/uL (4.50-6.00); RDW-CV 15.8 % (10.5-14.5); WBC 7.9 thou/uL (4.0-11.0)
[2018-01-20 05:18] LABS: ALBUMIN 2.8 g/dL (3.4-5.0); ALKALINE PHOSPHATASE 70 U/L (46-116); ANION GAP 7 mmol/L (7-16); BUN 31 mg/dL (7-18); CALCIUM 8.1 mg/dL (8.5-10.1); CHLORIDE 100 mmol/L (98-107); CHOLESTEROL 109 mg/dL (<200); CO2 28 mmol/L (21-32); CREATININE 1.3 mg/dL (0.6-1.3); GLUCOSE 245 mg/dL (70-99); HDL CHOLESTEROL 51 mg/dL (>40); LDL CHOLESTEROL 46 mg/dL (<100); MAGNESIUM 1.9 mg/dL (1.8-2.4); POTASSIUM 4.3 mmol/L (3.5-5.1); SGOT 18 U/L (15-37); SGPT 24 U/L (30-65); SODIUM 135 mmol/L (136-145); TC:HDL 2.1 Ratio (Not establshd); TOTAL BILIRUBIN 0.5 mg/dL (<0.1-1.0); TOTAL PROTEIN 6.2 g/dL (6.4-8.2); TRIGLYCERIDE 60 mg/dL (<150); VLDL 12 mg/dL (<40)
[2018-01-20 05:23] LABS: SERUM ASSESSMENT CLEAR
--- NOTE | 2018-01-20 08:00 | NUR ---
RECIEVED REPORT. ASSUMED CARE OF PT AT 0730. VSS. CARDIAC MONITORING IN PLACE SR. AM ASSESSMENT AND VITALS COMPLETED CHARTED. PT ALERT AND ORIETNED. NIH COMPLETED CHARTED. PT REPORTS SYMPTOMS HAVE SUBSIDED THIS AM. PT DNEIES ANY COMPLAINTS OF PAIN OR DISCOMFORT THIS AM. PT INFORMED OF PLAN OF CARE FOR MRI AND ECHO TODAY. PT COMMUNICATES UNDERSTANDING. CALL LIGHT IS WITHIN REACH. WILL CONTINUE TO MONTIOR FOR DURAITON OF SHFIT.
[2018-01-20 08:01] VITALS: BP 145/63
--- NOTE | 2018-01-20 10:05 | EKG ---
[place] [address] ELECTROCARDIOGRAM REPORT Name: SANGALEKSEY CARRION Room: [address] ADM IN .R.#: [id number] Admission: 01/19/18 Attend Phys: Yoan Varela MD Discharge: Date of : 44 Report #: [id number] THIS REPORT FOR: //name// [facility] ED Test Date: 2018-01-19 Test Time: 19:36:39 Pat Name: ALEKSEY DOMÍNGUEZ Department: Room: [facility] Gender: M Service Girl: Prabha SOSA : 1940 Requested By: Clark Massey Order Number: [id number] MD: Maury Belcher Measurements Intervals [place] Rate: 56 P: 40 IA: 203 QRS: 15 QRSD: 100 T: 58 QT: 434 QTc: 419 Interpretive Statements Sinus bradycardia Compared to ECG 12/16/2017 10:59:00 rate slowed Electronically Signed On 01-20-2018 10:05:33 CDT by Maury Belcher [email or web address] <ELECTRONICALLY SIGNED> By: Maury Belcher MD, [facility] 01/20/18 1005 35 35 Maury Belcher MD, [facility] /EPI
[2018-01-20 11:57] VITALS: BP 146/64
--- NOTE | 2018-01-20 13:34 | NUR ---
Pt is A&O. Resides at home with his son and DIL. Independent with ADLs. No DME. No hx of HH or SNF. Goal is home at dc. No needs anticipated. Following.
[2018-01-20 15:33] VITALS: BP 130/57
[2018-01-20 16:57] LABS: URINE BILIRUBIN NEGATIVE (Negative); URINE BLOOD NEGATIVE (Negative); URINE CLARITY CLEAR; URINE COLOR YELLOW; URINE GLUCOSE-RANDOM 3+ (Negative); URINE KETONES NEGATIVE (Negative); URINE LEUKOCYTES-REFLEX NEGATIVE (Negative); URINE NITRITE-REFLEX NEGATIVE (Negative); URINE PROTEIN NEGATIVE (Negative); URINE UROBILINOGEN 0.2 E.U./dl (0.2-1.0)
--- NOTE | 2018-01-20 17:21 | NUR ---
VSS. CARDIAC MONTIORING IN PLACE WITH NO CHANGES THIS SHIFT. NIH COMPLETED CHARTED. PT REMAINS ALERT AND ORIENTED. PT ON RA. IV SALINE LOCKED. PT DENIES ANY PAIN. PT IS UP AD [place]. PT COMPLETED MRI TESTING TODAY. CALL LIGHT IS WITHIN REACH. WILL CONTINUE TO MOTNIOR FOR DURATION OF SHIFT.
--- NOTE | 2018-01-20 17:32 | NUR ---
RECEIVED CONSULT FOR POSSIBLE REHAB ADMISSION. CONSULT HAS BEEN ACKNOWLEDGED BY GEOCHEMICAL LABORATORY TECHNICIAN AND DR. TOBAR. PATIENT ADMITTED WITH POSSIBLE CVA. NEUROLOGY WORK UP IN PROGRESS. MRI NEGATIVE FOR STROKE. EEG PENDING FOR POSSIBLE SEIZURE. PT/OT EVALUATED PATIENT ST EVALUATION IS PENDING. WILL FOLLOW ALONG WITH PATIENT TO DETERMINE NEEDS AND QUALIFICATIONS ONCE WORK UP AND DX COMPLETE. THANK YOU FOR THIS CONSULT.
--- NOTE | 2018-01-20 17:47 | 2DMMODE ---
[place] [address] 2 D/M-MODE ECHOCARDIOGRAM Name: ALEKSEY DOMÍNGUEZ Room: [address] IN [facility]#: [id number] Admission: 01/19/18 Attend Phys: Yoan Varela, Discharge: Date of : 44 Date of Service: 01/20/18 1747 Report #: [id number] THIS REPORT FOR: //name// APPROVED REPORT Study performed: 01/20/2018 14:13:53 EXAM: Comprehensive 2D, Doppler, and color-flow Echocardiogram Patient Location: In-Patient Room #: 220 Status: routine BSA: 2.16 HR: 67 bpm BP: 130/57 mmHg Rhythm: NSR Other Information Study Quality: Good Indications CVA/TIA Echo Enhancing Agent Indication: Rule out Shunt Agent(s) / Amount(s) Used: Agitated Saline 10 cc 2D Dimensions IVSd: 10.62 (7-11mm) LVOT Diam: 20.97 (18-24mm) LVDd: 45.40 mm PWd: 9.43 (7-11mm) Ascending Ao: 34.09 (22-36mm) LVDs: 27.27 (25-40mm) Aortic Root: 31.21 mm Volumes Left Atrial Volume (Systole) LA ESV Index: 29.30 mL/m2 Aortic Valve AoV Peak Timi.: 1.43 m/s AO Peak Gr.: 8.18 mmHg LVOT Max P.94 mmHg AO Mean Gr.: 4.37 mmHg LVOT Mean P.95 mmHg LVOT Max V: 0.99 m/s AO V2 VTI: 33.19 cm LVOT Mean V: 0.64 m/s BRIDGER (VTI): 2.32 cm2 LVOT V1 VTI: 22.30 [place] [address] 2 D/M-MODE ECHOCARDIOGRAM Name: ALEKSEY DOMÍNGUEZ Room: [address] IN [facility]#: [id number] Admission: 01/19/18 Attend Phys: Yoan Varela, Discharge: Date of : 44 Date of Service: 01/20/18 1747 Report #: [id number] Mitral Valve E/A Ratio: 1.48 MV Decel. Time: 188.22 ms MV E Max Timi.: 1.03 m/s MV PHT: 54.58 ms MVA (PHT): 4.03 cm2 TDI E/Lateral E': 9.36 E/Medial E': 8.58 Medial E' Timi.: 0.12 m/s Lateral E' Timi.: 0.11 m/s Pulmonary Valve PV Peak Timi.: 1.02 m/s PV Peak Gr.: 4.19 mmHg Tricuspid Valve RAP Estimate: 5.00 mmHg TR Peak Gr.: 42.28 mmHg RVSP: 47.00 mmHg PA Pressure: 47.00 mmHg Left Ventricle The left ventricle is normal size. There is normal LV segmental wall motion. There is normal left ventricular wall thickness. Left ventricular systolic function is normal. The left ventricular ejection fraction is within the normal range. LVEF is 55-60%. The left ventricular diastolic function is normal. Right Ventricle The right ventricle is normal size. The right ventricular systolic function is normal. Atria Left atrium is mildly dilated. Interatrial septum is intact without evidence of ASD or PFO. The right atrium size is normal. Aortic Valve Mild aortic valve sclerosis. No aortic regurgitation is present. There is no aortic valvular stenosis. Mitral Valve The mitral valve is normal in structure. Mild mitral regurgitation. No evidence of mitral valve stenosis. Tricuspid Valve The tricuspid valve is normal in structure. Mild tricuspid regurgitation. estimated pa pressure 50 [place] [address] 2 D/M-MODE ECHOCARDIOGRAM Name: CHUCKSHERWINALEKSEY SHEYLA Room: [address] IN M.R.#: [id number] Admission: 01/19/18 Attend Phys: Yoan Varela, Discharge: Date of : 44 Date of Service: 01/20/18 1747 Report #: [id number] Pulmonic Valve Pulmonic valve is not well visualized. There is no pulmonic valvular regurgitation. Great Vessels The aortic root is normal in size. IVC is not well visualized. Pericardium There is no pericardial effusion. <Conclusion> LVEF is 55-60%. Left atrium is mildly dilated. Mild aortic valve sclerosis. Mild mitral regurgitation. Interatrial septum is intact without evidence of ASD or PFO. Mild tricuspid regurgitation. estimated pa pressure 50 mm Hg <ELECTRONICALLY SIGNED> By: Maury Belcher MD, FACC 01/20/181746 46 46 Maury Belcher MD, FACC /INF
[2018-01-20 20:00] VITALS: BP 121/52
[2018-01-21] VITALS: BP 119/57
[2018-01-21 04:00] VITALS: BP 139/69
--- NOTE | 2018-01-21 04:56 | NUR ---
ASSUMED CARE OF PT AFTER REPORT AT 1930. PT A&OX4. VSS. PHYSICAL ASSESSMENT COMPLETED & CHARTED. PT ON RA WITH 94% O2 SAT. PT TRACING SR/SB/PVC ON TELE. PT UP ADLIB TO RESTROOM. NIH CHARTED.DENIES ANY PAIN OR DISCOMFORT AT THIS TIME. PT RESTED WELL ON BED. HS REST & SAFETY GOALS ACHIEVED. CALL LIGHT WITHIN REACH. BED IN LOW POSITION.
[2018-01-21 08:00] VITALS: BP 119/69
--- NOTE | 2018-01-21 10:22 | NUR ---
PT CARE ASSUMED AT 0730. ALERT AND ORIENTED X4. SAT MAINTAINED IN RA. VSS RN TELEPHONE TRIAGE INPLACE, SB WITH PVCS TRACING. CALL LIGHT WITHIN REACH AND FALL PRECAUTIONS MAINTAINED. PT EDUCATED ABOUT PLAN OF CARE. DENIES PAIN AND SOB AT THIS AM. WILL CONTINUE TO MONITOR.
[2018-01-21 11:58] VITALS: BP 119/69
--- NOTE | 2018-01-21 13:30 | NUR ---
PT ALERT AND ORIENTED X4. SAT MAINTAINED IN RA. DISCHARGE ORDER RECIEVED. IV OUT. MARKETING DIRECTOR RETURNED TO TELE UNIT. DISCHARGE EDUCATION ON FOLLOW UP AND MEDICATIONS GIVEN. PT DISCHARGED ON WHEELCHAIR AT 1330.
--- NOTE | 2018-01-24 19:14 | CON ---
[address] [address] CONSULTATION Name: ALEKSEY DOMÍNGUEZ Room: [address] IN M.R.#: [id number] Admission: 01/19/18 Attend Phys: Yoan Varela MD Discharge: 01/21/18 Date of : 44 Report #: [id number] THIS REPORT FOR: //name// CC: JUDITH physician/PCP Yoan Castillo DATE OF SERVICE: 01/20/2018 HISTORY OF PRESENT ILLNESS: This is a 77-year-old male patient who was evaluated by me to determine any neurological etiology for the patient's spell he had. He indicates that he actually had 2 spells. One of them was during this admission and the other one was about a month and a half ago. During both these spells, the patient was fully conscious. He started having involuntary movements of the upper and lower extremities. He was trying to reach to his glasses and he was over itching it. They tried to see the patient's blood sugar that time and they could not get the reading. They drove home and it took them about 15 minutes and that time, the patient's blood sugar was done again and it was about 140. The patient checks his blood sugar multiple times during day, the lowest he has seen is about 60s. He never had any significant documented hypoglycemia. REVIEW OF SYSTEMS: Indicates the patient has a history of diabetes. He had 2 episodes like this. Records indicate he has a history of paroxysmal tachycardia. He has a history of diabetes, cardiac catheterization, skin cancer removal, lower back pain in the past. He denies any history of stroke. Some of the records indicate that he had some sinus bradycardia. He does have a high blood pressure, but it is not very high. The highest it has been is 172 when he has been here. A 14-point review of system was carried out, but presently, the patient denies any significant other symptoms except as summarized above. He feels back to his baseline and does not have any new eye, ENT, cardiac, respiratory, GI, , musculoskeletal, constitutional, dermatological, hematological, psychiatric, throat, allergic symptom associated with present symptomatology except as described above. PAST MEDICAL HISTORY: Negative for stroke. FAMILY HISTORY: Negative for any early age stroke. SOCIAL HISTORY: The patient does not drink alcohol on a regular basis. PHYSICAL EXAMINATION: Indicates he is alert. He is responsive. He is oriented. His speech, concentration, fund of knowledge and memory is at his baseline. Cranial nerve examination 2-12 looks unremarkable. He has symmetrical strength, sensation and reflexes and tone in all 4 extremities. His reflexes are diminished bilaterally and I [place] [address] CONSULTATION Name: ALEKSEY DOMÍNGUEZ Room: [address] IN ..#: [id number] Admission: 01/19/18 Attend Phys: Yoan Varela MD Discharge: 01/21/18 Date of : 44 Report #: [id number] diabetes. His pulses are difficult to feel. He is reasonably well-built individual who does not have any dysmorphic features of eyes, ears and face. His cardiac examinations appear unremarkable. No respiratory difficulty or rhonchi. He has no thyroid mass. He is reasonably well-developed individual. He has no carotid bruit. Blood pressure is 146/64, respiration is 20, pulse is 68, temperature is 97.5. LABORATORY DATA: Indicates WBC count of 7.9. His MRIs and MRAs were reviewed and that showed no acute CVA. IMPRESSION: The patient needs some further workup to determine the etiology of his symptoms. The most common cause for this is hypoglycemia, but the patient has no documented hypoglycemia. We will exclude the possibility of seizures. That appears unlikely because the patient does not have any loss of consciousness during these episodes. Transient ischemic attack is still possible, but the history is not very typical for transient ischemic attack either. RECOMMENDATIONS: 1. EEG. 2. He is already on platelet. 3. His LDL is 46 and looks like that is pretty well controlled. 4. EEG does not picker feeder the seizures all the time. If EEG is negative and he continued to have spells and no other cause can be documented, then we may have to give him a trial with Lamictal. Thank you very much for this referral and I discussed all of it with the patient in detail. <ELECTRONICALLY SIGNED> By: Audi Chung MD 01/24/18 1914 1203 1524Pshahzad Chung MD /nt
--- NOTE | 2018-01-24 19:14 | EEG ---
[address] [address] EEG STUDY REPORT Name: ALEKSEY DOMÍNGUEZ Room: [address] IN M.R.#: [id number] Admission: 01/19/18 Attend Phys: Yoan Varela MD Discharge: 01/21/18 Date of : 44 Report #: [id number] THIS REPORT FOR: //name// CC: [facility] physician/PCP Yoan Castillo DATE OF SERVICE: 01/20/2018 This patient is being evaluated for jerking movements of all 4 extremities. He had two episodes like that. EEG was done by placing the electrodes by standard 10-20 system of electrode placement. Both referential and sequential montages were used for recording. Background activity in this patient's EEG is about 9-10 Hz and 40 microvolt. It is a symmetrical activity. The patient went to sleep that is associated with bilateral slowing and vertex sharp waves. Photic stimulation is unremarkable. Throughout the record, no active epileptiform activity was noticed. IMPRESSION: This patient's EEG is within normal limits. <ELECTRONICALLY SIGNED> By: Audi Chung MD 01/24/18 1914 1712 1753Pshahzad Chung MD /nt
== END 2018-01-21 12:37 | disposition home or self-care (01) | DRG 101 ==
LOC: M.ERS 19:24 → M.TBA-ER 20:58 → M.2W 20:58
PROVIDERS: Emergency Medicine Emergency Medical Services
DX: R56.9 Unspecified convulsions (principal); E44.1 Mild protein-calorie malnutrition; I99.8 Other disorder of circulatory system; I25.10 Atherosclerotic heart disease of native coronary artery without angina pectoris; J45.909 Unspecified asthma, uncomplicated; E11.649 Type 2 diabetes mellitus with hypoglycemia without coma; R00.1 Bradycardia, unspecified; N18.3 Chronic kidney disease, stage 3 (moderate); I12.9 Hypertensive chronic kidney disease with stage 1 through stage 4 chronic kidney disease, or unspecified chronic kidney disease; E78.5 Hyperlipidemia, unspecified; R27.0 Ataxia, unspecified; Z79.899 Other long term (current) drug therapy

== ENCOUNTER → 2019-04-15 | Outpatient (CLI) | payer OTHER ==
[2019-04-15 09:19] LABS: URINE BILIRUBIN NEGATIVE (Negative); URINE BLOOD NEGATIVE (Negative); URINE CLARITY CLEAR; URINE COLOR YELLOW; URINE GLUCOSE-RANDOM NEGATIVE (Negative); URINE KETONES NEGATIVE (Negative); URINE LEUKOCYTES NEGATIVE (Negative); URINE NITRITE NEGATIVE (Negative); URINE PROTEIN NEGATIVE (Negative); URINE SPECIFIC GRAVITY 1.015 (1.005-1.030); URINE UROBILINOGEN 0.2 E.U./dl (0.2-1.0)
[2019-04-15 09:35] LABS: ALBUMIN 3.3 g/dL (3.4-5.0); CALCIUM 8.4 mg/dL (8.5-10.1); CREATININE 1.2 mg/dL (0.6-1.3); POTASSIUM 4.2 mmol/L (3.5-5.1); TOTAL BILIRUBIN 0.5 mg/dL (<0.1-1.0); TOTAL PROTEIN 7.1 g/dL (6.4-8.2)
== END ==
LOC: M.LAB 08:46
PROVIDERS: Orthopaedic Surgery
DX: E11.9 Type 2 diabetes mellitus without complications (principal)

== ENCOUNTER 2019-09-19 16:46 | Emergency (ER) | payer OTHER ==
[~2019-09-19] VITALS: Ht 177.8 cm; Wt 104.3 kg
[2019-09-19] MEDS ORDERED: HUMALOG100 UNIT/1 SUBQ ×2 (17:15→17:16)
[2019-09-19] MEDS ORDERED: HUMALOG100 UNIT/2 SUBQ (17:16)
[2019-09-19] MEDS ORDERED: NOVOLOG100 UNIT/M SUBQ ×3 (17:17)
[2019-09-19] MEDS ORDERED: LEVEMIR100 UNIT/2 SUBQ (17:18)
[2019-09-19 17:19] LABS: PCO2 37.2 mmHg (35.0-45.0)
[2019-09-19] MEDS ORDERED: ECOTRIN325 MG PO (17:19)
[2019-09-19 17:20] LABS: BE 2.1 mmol/L (-2 to +3)
[2019-09-19 17:26] LABS: PO2 141.4 mmHg (75.0-100.0)
[2019-09-19 17:27] LABS: ABSOLUTE EOSINOPHILS 0.3 thou/uL (0.0-0.7); ABSOLUTE LYMPHOCYTES 1.4 thou/uL (0.8-5.3); ABSOLUTE MONOCYTES 0.6 thou/uL (0.0-1.2); ABSOLUTE NEUTROPHILS 5.7 thou/uL (1.6-8.1); BASOPHILS 0.5 %; EOSINOPHILS 3.5 %; HEMATOCRIT 35.3 % (42.0-52.0); LYMPHOCYTES 17.8 %; MCH 30.8 pg (26.0-34.0); MCHC 34.1 g/dL (28.0-37.0); MCV 90.4 fL (80.0-100.0); MONOCYTES 7.5 %; MPV 8.1 fl. (7.2-11.1); NUCLEATED RBCS 0 /100WBC; PLATELET COUNT* 288 thou/uL (150-400); POLYS 70.7 %; RDW-CV 14.4 % (10.5-14.5)
[2019-09-19 17:37] LABS: CALCIUM 8.4 mg/dL (8.5-10.1); CREATININE 1.6 mg/dL (0.6-1.3); POTASSIUM 4.2 mmol/L (3.5-5.1)
[2019-09-19 17:39] LABS: APTT 26.1 Seconds (25.0-31.3); PROTIME 10.3 Seconds (9.20-11.50)
[2019-09-19 17:52] LABS: ALBUMIN 3.3 g/dL (3.4-5.0); TOTAL BILIRUBIN 0.5 mg/dL (<0.1-1.0)
[2019-09-19 18:14] VITALS: BP 154/105
--- NOTE | 2019-09-20 13:27 | EKG ---
[place] [address] ELECTROCARDIOGRAM REPORT Name: CHUCKSHERWINALEKSEY SHEYLA Room: [facility]#: [id number] Admission: 09/19/19 Attend Phys: Discharge: 09/19/19 Date of : 44 Date of Service: 09/19/191651 Report #: [id number] THIS REPORT FOR: //name// [facility] ED Test Date: 2019-09-19 Test Time: 16:52:25 Pat Name: ALEKSEY DOMÍNGUEZ Department: Room: Gender: Reel Slitter: [facility] : 1940 Requested By: Eugene Zhang Order Number: [id number] MD: Maury Belcher Measurements Intervals [place] Rate: 66 P: 33 NC: 171 QRS: -1 QRSD: 99 T: 34 QT: 409 QTc: 429 Interpretive Statements Sinus rhythm Low voltage, precordial leads Abnormal R-wave progression, early transition Compared to ECG 01/19/2018 19:36:39 Low QRS voltage now present Sinus bradycardia no longer present Electronically Signed On 09-20-2019 13:26:59 CDT by Maury Belcher [email or web address] <ELECTRONICALLY SIGNED> By: Maury Belcher MD, [facility] 09/20/19 1326 1652 1652 Maury Belcher MD, [facility] /EPI
== END 2019-09-19 18:15 | disposition home or self-care (01) ==
LOC: M.ERS 16:46
PROVIDERS: Family Medicine
DX: R06.00 Dyspnea, unspecified (principal); E11.9 Type 2 diabetes mellitus without complications; Z95.5 Presence of coronary angioplasty implant and graft; Z85.828 Personal history of other malignant neoplasm of skin